=== PATIENT | female | born 1990 | race Caucasian/White ===

== ENCOUNTER 2023-10-22 17:26 | Emergency (ER) | payer OTHER ==
[2023-10-22 18:18] VITALS: TEMP 98.1; BMI 36.8
[2023-10-22 20:02] VITALS: BP 123/84; PULSE 69; RESP 16
[2023-10-22 20:15] LABS: HEMATOCRIT 37.5 % (32.4-45.2); HEMOGLOBIN 12.3 G/dL (10.7-15.3); MCH 26.7 pg (25.7-33.7); MCHC 32.7 g/dl (32.0-36.0); MEAN CELL VOLUME 81.7 fl (80-96); MEAN PLT VOLUME 8.9 fl (7.5-11.1); PLATELET COUNT 279.9 10^3/uL (134-434); RBC 4.59 10^6/uL (3.60-5.2); RDW 16.1 % (11.6-15.6); WHITE BLOOD COUNT 7.3 10^3/uL (4.0-10.8)
[2023-10-22 20:27] LABS: ALBUMIN 4.4 g/dl (3.4-5.0); ALK PHOS 61 U/L (45-117); ANION GAP 5 mmol/L (4-13); BILIRUBIN,TOTAL 0.5 mg/dl (0.2-1); CALCIUM 9.6 mg/dl (8.5-10.1); CHLORIDE 104 mmol/L (98-107); CO2 28 mmol/L (21-32); CREATININE 0.7 mg/dl (0.6-1.3); GLUCOSE,RANDOM 89 mg/dl (74-106); POTASSIUM 3.9 mmol/L (3.5-5.1); SGOT/AST 21 U/L (15-37); SGPT/ALT 19 U/L (7-52); SODIUM 137 mmol/L (136-145); TOT PROT 7.7 g/dl (6.4-8.2)
[2023-10-22] MEDS ORDERED: IBUPROFEN 600 MG TABLET (FP) PO ONE (20:58)
[2023-10-22] MEDS: IBUPROFEN 600 MG TABLET (FP) PO ONE (21:01)
== END 2023-10-22 21:15 | disposition home or self-care (01) ==
LOC: FER 17:26
DX: R07.89 Other chest pain (principal)
CPT/HCPCS: 36415; 80053; 82550; 84484; 85027; 85379; 93005; 99284-25